=== PATIENT | female | born 1965 | race Two or more races ===

== ENCOUNTER 2020-01-08 16:55 | Outpatient (CLI) | payer OTHER | END 2020-01-08 17:40 | disposition home or self-care (01) | LOC: OFIC 805 16:55 | PROVIDERS: ATTEND Otolaryngology Otology & Neurotology | DX: H91.90 Unspecified hearing loss, unspecified ear (principal) ==

== ENCOUNTER 2020-02-12 15:15 | Outpatient (CLI) | payer OTHER | END 2020-02-12 15:22 | disposition home or self-care (01) | LOC: SONOGRAMA 15:15 | PROVIDERS: ATTEND Internal Medicine Endocrinology, Diabetes & Metabolism | DX: E04.8 Other specified nontoxic goiter (principal) ==

== ENCOUNTER 2020-03-04 16:34 | Outpatient (CLI) | payer OTHER | END 2020-03-04 17:20 | disposition home or self-care (01) | LOC: OFIC 805 16:34 | PROVIDERS: ATTEND Otolaryngology Otology & Neurotology | DX: H91.8X9 Other specified hearing loss, unspecified ear (principal) ==

== ENCOUNTER 2021-10-30 09:06 | Outpatient (CLI) | payer OTHER | END 2021-10-30 09:19 | disposition home or self-care (01) | LOC: SONOGRAMA 09:06 | PROVIDERS: ATTEND Internal Medicine Endocrinology, Diabetes & Metabolism | DX: E04.8 Other specified nontoxic goiter (principal) ==

== ENCOUNTER 2023-05-26 08:07 | Outpatient (CLI) | payer OTHER | END 2023-05-26 08:17 | disposition home or self-care (01) | LOC: SONOGRAMA 08:07 | PROVIDERS: ATTEND Internal Medicine Endocrinology, Diabetes & Metabolism | DX: E04.8 Other specified nontoxic goiter (principal) ==

== ENCOUNTER 2024-12-11 07:12 | Outpatient (CLI) | payer OTHER | END 2024-12-11 07:18 | disposition home or self-care (01) | LOC: SONOGRAMA 07:12 | PROVIDERS: ATTEND Internal Medicine Endocrinology, Diabetes & Metabolism | DX: E04.8 Other specified nontoxic goiter (principal) ==